=== PATIENT | male | born 1995 | race African-American/Black ===

== ENCOUNTER 2018-06-23 20:24 | Emergency (ER) | payer OTHER ==
[2018-06-23 20:44] VITALS: BP 131/75
[2018-06-23] MEDS ORDERED: Azithromycin TAB* 250 MG PO ONE (21:07)
[2018-06-23] MEDS ORDERED: cefTRIAXone VIAL(*) 250 MG VIAL IM ONE (21:07)
--- NOTE | 2018-06-23 21:54 | UC ---
Complaint Male HPI - HPI Summary HPI Summary: 22-year-old male comes to clinic with burning with urination. This is been going on for 3 days. He noticed a white discharge from his penis. He has burning at the meatus. He denies any pain in the testicles or the abdomen. No fevers. No change in stools. He has not seen any penile or perineal lesions. He is not aware of any sexual partner that has been diagnosed with an STI. - History of Current Complaint Chief Complaint: UCSTDScreening Stated Complaint: PERSONAL Time Seen by Provider: 06/23/18 20:53 Pain Intensity: 0 - Allergies/Home Medications Allergies/Adverse Reactions: Allergies Allergy/AdvReac Type Severity Reaction Status Date / Time No Known Allergies Allergy Verified 06/23/18 20:44 Home Medications: Home Medications NK [No Home Medications Reported] 06/23/18 [History Confirmed 06/23/18] PMH/Surg Hx/FS Hx/Imm Hx - Additional Past Medical History Additional PMH: POSITIVE HSV2 Other Endocrine History: NO DM Other Cardiovascular History: NO HTN - Surgical History Surgical History: None - Family History Known Family History: Positive: Cardiac Disease, Diabetes - Social History Alcohol Use: Rare Substance Use Type: Marijuana Smoking Status (MU): Never Smoked Tobacco Review of Systems Constitutional: Negative Skin: Negative Eyes: Negative ENT: Negative Respiratory: Negative Cardiovascular: Negative Gastrointestinal: Negative Genitourinary: Dysuria, Vaginal/Penile Burning, Vaginal/Penile Discharge Motor: Negative Neurovascular: Negative Musculoskeletal: Negative Neurological: Negative Psychological: Negative Is Patient Immunocompromised?: No All Other Systems Reviewed And Are Negative: Yes Physical Exam Triage Information Reviewed: Yes Appearance: Well-Appearing, No Pain Distress, Well-Nourished Vital Signs: Initial Vital Signs Temp 98.1 F 06/23/18 20:38 Pulse 61 06/23/18 20:38 Resp 16 06/23/18 20:38 BP 131/75 06/23/18 20:38 Pulse Ox 100 06/23/18 20:38 Vital Signs Reviewed: Yes Eye Exam: Normal Eyes: Positive: Conjunctiva Clear ENT Exam: Normal Neck exam: Normal Neck: Positive: Supple Respiratory: Positive: No respiratory distress Abdominal Exam: Normal Abdomen Description: Positive: Nontender, No Organomegaly, Soft Bowel Sounds: Positive: Present Male Genital Exam: Positive: Normal Genitalia, No Hernia, Urethral Discharge - CLEAR, SINGLE DROP. Negative: Lesions, Scrotum Tenderness (R), Scrotum Tenderness (L), Testicular Tenderness (R), Testicular Tenderness (L) Musculoskeletal Exam: Normal Neurological Exam: Normal Psychological Exam: Normal Skin Exam: Normal Complaint Male Course/Dx - Course Course Of Treatment: GIVEN ROCHEPHIN 250MG IM AND [id number] PO IN CLINIC. GC/CHALAMYDIA URINE RESULTS PENDING. URINE DIP WITHOUT SIGNS OF INFECTION. URINE ALSO SENT FOR CX. DISCUSSED NO SEX FOR 7 DAYS AND UNTIL HE KNOWS THE GC/ CHALAMYDIA RESULTS. - Differential Dx/Diagnosis Provider Diagnoses: URETHRITIS Discharge - Sign-Out/Discharge Documenting (check all that apply): Patient Departure All imaging exams completed and their final reports reviewed: No Studies - Discharge Plan Condition: Stable Disposition: HOME Patient Education Materials: Nonspecific Urethritis in Men (ED) Referrals: [facility] [Outside] Additional Instructions: FOLLOW UP WITH YOUR DOCTOR IF NOT COMPLETELY IMPROVED. YOUR LAB RESULTS ARE PENDING. YOU RECEIVED ROCEPHIN 250MG AND AZITHROMYCIN 1GM IN CLINIC. GET RECHECKED FOR ANY WORSENING OF YOUR CONDITION OR QUESTIONS OR CONCERNS. - Billing Disposition and Condition Condition: STABLE Disposition: Home
== END 2018-06-23 21:55 | disposition home or self-care (01) ==
LOC: UCCORT 20:24
DX: N34.2 Other urethritis (principal)
CPT/HCPCS: 81003; 87086; 87491; 87591; 96372; 99202; A9270-GY; G0463; J0696